=== PATIENT | female | born 1995 | race Hispanic/Latino ===

== ENCOUNTER 2017-12-22 08:15 | Emergency (ER) | payer OTHER ==
[2017-12-22 09:07] LABS: RAPID GROUP A STREP NEGATIVE (NEGATIVE)
== END 2017-12-22 09:34 | disposition home or self-care (01) ==
LOC: EDH 08:15
DX: J06.9 Acute upper respiratory infection, unspecified (principal); B34.9 Viral infection, unspecified; Z87.891 Personal history of nicotine dependence
CPT/HCPCS: 87804; 87880